=== PATIENT | male | born 1955 | race Caucasian/White ===

== ENCOUNTER → 2016-11-24 | Outpatient (CLI) | payer BC ==
--- NOTE | 2016-11-24 12:28 | DIAGNOSTIC IMAGING REPORT ---
NUCLEAR GASTRIC EMPTYING STUDY CLINICAL HISTORY: Generalized abdominal pain. COMPARISON STUDY: No priors. TECHNIQUE: Following the oral administration of 1.069 mCi of technetium 99m sulfur colloid in egg sandwich and 8 ounces of water, static abdominal images are obtained anteriorly and posteriorly at 0 minutes, 1 hour, 2 hour, and 4 hour time intervals. Gastric emptying was calculated utilizing the geometric mean method. FINDINGS: There is approximately 73% activity remaining at the 1 hour time interval, 32% remaining at the 2 hour time interval (normal is less than 60%), and 1% activity remaining at the 4 hour time interval (normal is less than 10%). IMPRESSION: Findings are consistent with normal gastric emptying for solids. Electronically signed by: Wesly Santana M.D. 11/24/2016 12:26 PM Dictated Date/Time: 11/24/2016 12:26 PM
== END ==
LOC: C.NUCL 07:50
DX: R10.9 Unspecified abdominal pain (principal)

== ENCOUNTER → 2016-11-30 | Outpatient (CLI) | payer BC ==
--- NOTE | 2016-11-30 09:18 | DIAGNOSTIC IMAGING REPORT ---
(BARIUM SWALLOW) ESOPHAGUS CLINICAL HISTORY: R13.14 Dysphagia, pharyngoesophageal phase COMPARISON STUDY: None. FLUOROSCOPY TIME: 0.9 minutes. 24 images submitted. FINDINGS: The patient swallowed barium without difficulty. The contours of the hypopharynx are within normal limits. The esophagus is normal in course, caliber, motility. No hiatus hernia. No gastroesophageal reflux. IMPRESSION: Normal barium swallow. Electronically signed by: Mateus Murphy M.D. 11/30/2016 9:17 AM Dictated Date/Time: 11/30/2016 9:08 AM
== END | disposition home or self-care (01) ==
LOC: C.RAD 08:29
DX: R13.14 Dysphagia, pharyngoesophageal phase (principal)